=== PATIENT | male | born 1935 | race Caucasian/White ===

== ENCOUNTER 2019-11-19 05:41 | Day surgery (SDC) | payer OTHER ==
[~2019-11-19] VITALS: Ht 182.9 cm; Wt 79.4 kg
[~2019-11-19 05:41] MED LIST: ASPIR-LOW81 MG PO; CALCIUM CARBON600 MG PO; METFORMIN HCL500 MG PO; NORVASC10 MG PO; SIMVASTATIN40 MG PO; ZESTRIL20 MG PO
[2019-11-19 07:43] VITALS: BP 121/76
--- NOTE | 2019-11-23 06:18 | O ---
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 PROCEDURE: Bilateral lower lid ectropion repair with transconjunctival right lower lid and cheek lift. SURGEON: Anson Forrest MD. TRANSIT BUS OPERATOR: None. ANESTHESIA: MAC. COMPLICATIONS: None. 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 He presents today for a bilateral lower lid ectropion repair combined with transconjunctival right lower lid and cheek lift. Informed consent was obtained to include, but not limited to the potential risk for loss of vision, bleeding, infection, failure to improve the problem and the potential need for further surgery or treatment. DESCRIPTION OF PROCEDURE: The patient was taken to the operating room, where 2% Xylocaine with epinephrine mixed with equal parts of 0.75% Marcaine with Wydase was administered transcutaneously and transconjunctivally to each lower lid lateral canthus and infratemporal fossa. Additionally, on the right side, the medial canthal area and the right cheek were anesthetized. The patient was subsequently prepped and draped in the usual sterile fashion. The left lateral canthus was then clamped with a Duke clamp. A sharp canthotomy and cantholysis was then performed. A tarsal strip was then prepared laterally removing the lash bearing portion of the redundant lid margin and the redundant tarsal plate. Hemostasis was then re-achieved. The tarsal strip was then reattached to the internal portion of the lateral orbital tubercle with interrupted 5-0 Prolene sutures. The subcutaneous structures and the skin were [address] [address] OPERATIVE REPORT Name: CHRIS JAY Room #: DEP [facility]..#: [id number] Admission: 11/19/19 Attend Phys: Anson Forrest MD Discharge: 11/19/19 Date of : 33 Report #: [id number] then closed with interrupted 6-0 plain gut sutures. The right lateral canthus was then clamped with a Duke clamp. A sharp canthotomy and cantholysis was then performed. A tarsal strip was then prepared laterally removing the lash bearing portion of the redundant lid margin and the redundant tarsal plate. Hemostasis was then re-achieved. Attention was then turned away from the ectropion repair and to the lower lid and cheek lift. A transconjunctival incision was then made below the inferior border of the tarsal plate across the width of the lid. The dissection was then carried down into the premalar tissues utilizing primarily sharp dissection. Hemostasis was then re-achieved. The dissection was primarily accomplished with a Graham needle. The lower lid and cheek tissues were then elevated and resuspended with interrupted mattress double armed 5-0 chromic suture passes. The lower lid and cheek lifted well. Attention was then turned to completion of the ectropion repair. The tarsal strip was then resecured to the internal portion of the lateral orbital tubercle with interrupted 5-0 Prolene sutures. The subcutaneous structures and the skin were then closed with interrupted 6-0 plain gut sutures. The wounds were then cleaned and dressed with erythromycin ophthalmic ointment. The patient subsequently transported to the recovery area having tolerated the procedures well with no anesthetic or operative complications being noted. <ELECTRONICALLY SIGNED> By: Anson Forrest MD 11/23/19 0618 [id number] Anson Forrest MD /nt
== END 2019-11-19 08:35 | disposition home or self-care (01) ==
LOC: OR 05:41 → TBA 05:41 → OR 08:35
DX: H02.105 Unspecified ectropion of left lower eyelid (principal); H02.102 Unspecified ectropion of right lower eyelid; H02.532 Eyelid retraction right lower eyelid; H02.202 Unspecified lagophthalmos right lower eyelid; H18.9 Unspecified disorder of cornea; I10 Essential (primary) hypertension; E11.9 Type 2 diabetes mellitus without complications; E78.5 Hyperlipidemia, unspecified; Z98.41 Cataract extraction status, right eye; Z98.42 Cataract extraction status, left eye; Z98.890 Other specified postprocedural states; Z79.899 Other long term (current) drug therapy; Z95.0 Presence of cardiac pacemaker; Z87.891 Personal history of nicotine dependence; Z79.82 Long term (current) use of aspirin
CPT/HCPCS: 50010; 50101; 50386; 50398; 51636; 56527; 56531; 62110; 62850; 70005